=== PATIENT | female | born 1955 | race Caucasian/White ===

== ENCOUNTER 2019-04-19 12:46 | Emergency (ER) | payer OTHER ==
--- NOTE | 2019-04-19 13:05 | EDM.PDOC ---
ED HPI GENERAL MEDICAL PROBLEM - General Chief Complaint: Head Injury Stated Complaint: FELL Time Seen by Provider: 04/19/19 12:49 Source of Information: Reports: Patient History Limitations: Reports: No Limitations - History of Present Illness INITIAL COMMENTS - FREE TEXT/NARRATIVE: HISTORY AND PHYSICAL: History of present illness: Patient is a 64-year-old female who presents to the ED today with concern of right shoulder pain, right rib pain, and head pain after patient fell. Patient states she was walking her dog and the dog took off on the leash. Patient states she tried to run to keep up with the dog but tripped and fell on the concrete. Patient states she hit her right shoulder and the side of her right ribs and then hit her teeth on the cement. Patient states she did not lose consciousness. Patient denies any other symptoms or concerns. Patient denies fever, chills, chest pain, shortness of breath, or cough. Denies headache, neck stiff ness, change in vision, syncope, or near syncope. Denies nausea, vomiting, abdominal pain, diarrhea, constipation, or dysuria. Has not noted any blood in urine or stool. Patient has been eating and drinking appropriately. Review of systems: As per history of present illness and below otherwise all systems reviewed and negative. Past medical history: As per history of present illness and as reviewed below otherwise noncontributory. Surgical history: As per history of present illness and as reviewed below otherwise noncontributory. Social history: See social history for further information Family history: As per history of present illness and as reviewed below otherwise noncontributory. Physical exam: General: Patient is alert, oriented, and in no acute distress. Patient sitting comfortably on exam table. HEENT: Atraumatic, normocephalic, pupils equal and reactive bilaterally, negative for conjunctival pallor or scleral icterus, mucous membranes moist, TMs normal bilaterally, throat clear, neck supple, nontender, trachea midline. No drooling or trismus noted. No meningeal signs. No hot potato voice noted. Front tooth #8 is chipped at the bottom. Lungs: Clear to auscultation, breath sounds equal bilaterally, chest tender over ribs #8-10. Heart: S1S2, regular rate and rhythm without overt murmur Abdomen: Obese, Soft, nondistended, nontender. Negative for masses or hepatosplenomegaly. Negative for costovertebral tenderness. Pelvis: Stable nontender. Genitourinary: Deferred. Rectal: Deferred. Skin: Intact, warm, dry. No lesions or rashes noted. Extremities: Negative for cords or calf pain. Neurovascular unremarkable. No obvious deformity of the complete spine. No step-offs, crepitus, or point tenderness of spinous process of complete spine. Neuro: Awake, alert, oriented. Cranial nerves II through XII unremarkable. Cerebellum unremarkable. Motor and sensory unremarkable throughout. Exam nonfocal. Notes: Discussed the importance for follow-up with a primary care provider or orthopedic provider. Voices understanding and is agreeable to plan of care. Denies any further questions or concerns at this time. Diagnostics: CBC, CMP, UA, EKG, troponin, rib with chest x-ray, right shoulder and elbow x- ray, head CT Therapeutics: None Prescription: Diclofenac, shoulder immobilizer Impression: Head injury Shoulder injury Right rib injury Tooth fracture Plan: 1. Rest, ice, elevate the affected areas. You can apply ice 15 minutes on, 15 minutes off. 2. Tylenol directed for pain management or discomfort. Take medication as prescribed. Do not take this medication with ibuprofen. 3. Follow up with your primary care provider or orthopedic provider as discussed. Return to the ED as needed and as discussed. Definitive disposition and diagnosis as appropriate pending reevaluation and review of above. Right Rib Pain Score (Numeric/FACES): 5 - Related Data Allergies Allergy/AdvReac Type Severity Reaction Status Date / Time Penicillins Allergy Hives Verified 04/19/19 13:03 Home Meds: Home Meds Gabapentin [Neurontin] 400 mg PO DAILY 04/19/19 [History] Ibuprofen 800 mg PO DAILY 04/19/19 [History] Sertraline [Zoloft] 100 mg PO BEDTIME 04/19/19 [History] ED ROS GENERAL - Review of Systems Review Of Systems: ROS reveals no pertinent complaints other than HPI. ED EXAM, HEAD INJURY - Physical Exam Exam: See Below (See dictation) Course - Vital Signs Last Recorded V/S: Last Vital Signs Temp 97.3 F 04/19/19 13:04 Pulse 73 04/19/19 13:04 Resp 20 04/19/19 13:04 BP 171/87 H 04/19/19 13:04 Pulse Ox 97 04/19/19 13:04 - Orders/Labs/Meds Orders: Active Orders 24 hr Category Date Time Status EKG Documentation Completion [RC] STAT Care 04/19/19 12:58 Active UA RFX VITO AND CULT IF INDIC [URIN] Stat Lab 04/19/19 12:58 Ordered Labs: Laboratory Tests 04/19/19 04/19/19 Range/Units 13:16 13:16 WBC 7.78 (4.0-11.0) K/uL RBC 4.53 (4.30-5.90) M/uL Hgb 13.1 (12.0-16.0) g/dL Hct 40.4 (36.0-46.0) % MCV 89.2 (80.0-98.0) fL MCH 28.9 (27.0-32.0) pg MCHC 32.4 (31.0-37.0) g/dL RDW Std Deviation 44.3 (28.0-62.0) fl RDW Coeff of Jose 14 (11.0-15.0) % Plt Count 223 (150-400) K/uL MPV 11.00 (7.40-12.00) fL Neut % (Auto) 58.0 (48.0-80.0) % Lymph % (Auto) 32.8 (16.0-40.0) % [place] % (Auto) 7.7 (0.0-15.0) % Eos % (Auto) 1.4 (0.0-7.0) % Baso % (Auto) 0.1 (0.0-1.5) % Neut # (Auto) 4.5 (1.4-5.7) K/uL Lymph # (Auto) 2.6 H (0.6-2.4) K/uL [place] # (Auto) 0.6 (0.0-0.8) K/uL Eos # (Auto) 0.1 (0.0-0.7) K/uL Baso # (Auto) 0.0 (0.0-0.1) K/uL Nucleated RBC % 0.0 /100WBC Nucleated RBCs # 0 K/uL Sodium 141 (136-145) mmol/L Potassium 3.4 L (3.5-5.1) mmol/L Chloride 105 (98-107) mmol/L Carbon Dioxide 23.8 (21.0-32.0) mmol/L BUN 16 (7.0-18.0) mg/dL Creatinine 0.9 (0.6-1.0) mg/dL Est Cr Clr Drug Dosing 56.08 mL/min Estimated GFR (MDRD) > 60.0 ml/min Glucose 110 H (74-106) mg/dL Calcium 8.7 (8.5-10.1) mg/dL Total Bilirubin 0.4 (0.2-1.0) mg/dL AST 70 H (15-37) IU/L ALT 52 (14-63) IU/L Alkaline Phosphatase 78 (46-116) U/L Troponin I < 0.050 (0.000-0.056) ng/mL Total Protein 7.9 (6.4-8.2) g/dL Albumin 3.7 (3.4-5.0) g/dL Globulin 4.2 H (2.6-4.0) g/dL Albumin/Globulin Ratio 0.9 (0.9-1.6) Departure - Departure Time of Disposition: 14:26 Disposition: Home, Self-Care 01 Clinical Impression: Rib injury Head injury Qualifiers: Encounter type: initial encounter Qualified Code(s): S09.90XA - Unspecified injury of head, initial encounter Right shoulder injury Qualifiers: Encounter type: initial encounter Qualified Code(s): S49.91XA - Unspecified injury of right shoulder and upper arm, initial encounter Tooth fracture Qualifiers: Encounter type: initial encounter Fracture type: closed Qualified Code(s): S02.5XXA - Fracture of tooth (traumatic), initial encounter for closed fracture - Discharge Information Referrals: PCP,Not In Area [Primary Care Provider] - Forms: ED Department Discharge Additional Instructions: The following information is given to patients seen in the emergency department who are being discharged to home. This information is to outline your options for follow-up care. We provide all patients seen in our emergency department with a follow-up referral. The need for follow-up, as well as the timing and circumstances, are variable depending upon the specifics of your emergency department visit. If you don't have a primary care physician on staff, we will provide you with a referral. We always advise you to contact your personal physician following an emergency department visit to inform them of the circumstance of the visit and for follow-up with them and/or the need for any referrals to a consulting specialist. The emergency department will also refer you to a specialist when appropriate. This referral assures that you have the opportunity for follow-up care with a specialist. All of these measure are taken in an effort to provide you with optimal care, which includes your follow-up. Under all circumstances we always encourage you to contact your private physician who remains a resource for coordinating your care. When calling for follow-up care, please make the office aware that this follow-up is from your recent emergency room visit. If for any reason you are refused follow-up, please contact the [facility] Emergency Department at and asked to speak to the emergency department charge nurse. [facility] [address] [place] [id number] [address] [facility] - [facility] Professional Building [address] [place] [address], [address] [place] [address] Dr Vásquez, Orthopedist [facility] [address] [place] [address] Dr Marrero - Dr De Paz - [facility] [address] [place] [address] [facility] [address] [place] [address] 1. Rest, ice, elevate the affected areas. You can apply ice 15 minutes on, 15 minutes off. 2. Tylenol directed for pain management or discomfort. Take medication as prescribed. Do not take this medication with ibuprofen. 3. Follow up with your primary care provider or orthopedic provider as discussed. Return to the ED as needed and as discussed. - My Orders Last 24 Hours: My Active Orders 04/19/19 12:58 EKG Documentation Completion [RC] STAT UA RFX VITO AND CULT IF INDIC [URIN] Stat - Assessment/Plan Last 24 Hours: My Active Orders 04/19/19 12:58 EKG Documentation Completion [RC] STAT UA RFX VITO AND CULT IF INDIC [URIN] Stat
--- NOTE | 2019-04-19 14:01 | CT ---
Head CT Technique: Multiple axial sections through the brain were obtained. Intravenous contrast was not utilized. Comparison: No prior intracranial imaging is available. Findings: Ventricles along with basal cisterns and sulci over the convexities are mildly prominent. No abnormal parenchymal densities are seen. No evidence of intracranial hemorrhage. No midline shift or mass effect is seen. Bone window settings were reviewed which shows no acute calvarial abnormality. Mild areas of mucosal thickening are seen within the maxillary sinus and ethmoid sinuses which is felt to be pre-existing and chronic. No acute findings are seen within the mastoid sinuses. Impression: 1. Findings felt to be incidental. 2. No acute intracranial abnormality is appreciated. Diagnostic code #2 MTDD
[2019-04-19 14:12] LABS: BLOOD UREA NITROGEN,BUN 16 mg/dL (7.0-18.0); CARBON DIOXIDE,CO2 23.8 mmol/L (21.0-32.0); CHLORIDE,CL 105 mmol/L (98-107); GLUCOSE RANDOM 110 mg/dL (74-106); POTASSIUM,K 3.4 mmol/L (3.5-5.1); SODIUM,NA 141 mmol/L (136-145)
--- NOTE | 2019-04-19 14:12 | CR ---
Right shoulder: Three views of the right shoulder were obtained. Comparison: No previous shoulder study. Glenohumeral joint appears within normal limits. Mild degenerative change is noted within the acromioclavicular joint. No acute fracture, dislocation or other bony abnormality is seen. Impression: 1. Mild degenerative change within the acromioclavicular joint. 2. Right shoulder study is otherwise unremarkable. Diagnostic code #2 MTDD
--- NOTE | 2019-04-19 14:15 | CR ---
Chest and right ribs: Frontal view of the chest was obtained as well as two views of the right ribs. Comparison: No previous rib exam. Heart size and mediastinum are normal. Lungs are clear with no acute parenchymal change. Degenerative endplate spurring is scattered within the spine. Surgical clip is noted within the upper right abdomen. No discrete rib fracture or other right-sided rib abnormality is seen. Impression: 1. Nothing acute is seen on frontal chest x-ray. 2. No discrete rib abnormality is appreciated. 3. Other findings felt to be incidental. Diagnostic code #2 MTDD
--- NOTE | 2019-04-19 14:16 | CR ---
Right elbow: Three views of the right elbow were obtained. Calcification is noted off the lateral epicondyle compatible with calcification at the common extensor tendon attachment. Small calcification is seen above the medial epicondyle believed to be dystrophic and incidental. No joint effusion is seen. No fracture or other bony abnormality is identified. Impression: 1. Soft tissue calcifications as noted above which appear old. 2. Nothing acute is appreciated on right elbow study. Diagnostic code #2 MTDD
== END 2019-04-19 14:54 | disposition home or self-care (01) ==
LOC: MW.ED 12:46
DX: S09.90XA Unspecified injury of head, initial encounter (principal); S02.5XXA Fracture of tooth (traumatic), initial encounter for closed fracture; S49.91XA Unspecified injury of right shoulder and upper arm, initial encounter; S29.9XXA Unspecified injury of thorax, initial encounter; Z88.0 Allergy status to penicillin; Z79.899 Other long term (current) drug therapy; W01.0XXA Fall on same level from slipping, tripping and stumbling without subsequent striking against object, initial encounter; Y93.02 Activity, running
CPT/HCPCS: 36415; 70450; 70450-26; 71101-26-RT; 71101-RT; 73030-26-RT; 73030-RT; 73080-26-RT; 73080-RT; 80053; 84484; 85025; 93005; 99284; 99284-25